=== PATIENT | male | born 1995 | race Caucasian/White ===

== ENCOUNTER 2019-04-24 07:10 | Emergency (ER) | payer BC, SELFPAY ==
--- NOTE | ~2019-04-24 | XR_ITS ---
XR foot RT min 3V DATE: 04/24/2019 07:49 INDICATION: Injury. Pain and bruising at fifth metatarsal. TECHNIQUE: 4 views COMPARISON: None FINDINGS: There is a laterally displaced intra-articular fracture of the lateral base of the fifth me tatarsal bone. No other fracture or dislocation, periosteal reaction or bone destruction. IMPRESSION: Avulsion fracture of the lateral base of the fifth metatarsal bone Reviewed, dictated and finalized at location A.
[2019-04-24 07:24] VITALS: BP 144/73; PULSE 109; RESP 18; TEMP 36.6; O2SAT 99
--- NOTE | 2019-04-24 08:10 | ED.LOWEXIN ---
HPI - Extremity Injury (Lower) General Chief Complaint: Extremity Injury, Lower Stated Complaint: right foot pain Time Seen by Provider: 04/24/19 07:24 Source: patient and RN notes reviewed Mode of arrival: ambulatory Limitations: no limitations History of Present Illness HPI Narrative: Pt is a 24 y/o male presenting to the ED c/o rt foot pain. Pt reports he was taking a tire off his vehicle when he twisted his rt foot and heard a couple cracks last night. Pt states he has a Hx of Osteogenesis Imperfecta with a Hx of frequent bone fractures. Pt denies numbness and states he can ambulate and wiggle his toes. Onset (ago): unknown (Last night) Injury: Right: foot Place: home Other symptoms: none Related Data Home Medications Medication Instructions Recorded Confirmed No Home Medications 04/24/19 04/24/19 Allergies Allergy/AdvReac Type Severity Reaction Status Date / Time No Known Allergies Allergy Verified 04/24/19 07:30 Review of Systems Review of Systems: All systems reviewed & are unremarkable except as noted in HPI and below Musculoskeletal: Musculoskeletal: Reports other (Rt foot pain) Neurologic: Denies numbness PMFSH Past Medical History Medical History Osteogenesis imperfecta Surgical History Surgical History No significant past surgical history Social History Social History Smoking status: Unknown if ever smoked Gender identity (if verbalized by the patient): Male Exam Narrative: Exam Narrative: tend over proximal 5th metatarsal Const: General: healthy appearing and no acute distress Nutritional Appearance: well nourished HENMT: Mouth: Yes lip normal Eyes: Conjunctivae: conjunctivae normal Resp: Effort & Inspection: normal respiratory effort Back/Spine/Pelvis: Other: Full ROM Skin: General skin exam: normal color Other: Warm; Dry Neuro: General: patient oriented x3 Speech: normal speech Extrem: General: full ROM Psych: Mental Status: mental status grossly normal Affect: normal affect Course Vital Signs Vital signs: Vital Signs Temperature 36.6 C 04/24/19 07:24 Pulse Rate 109 H 04/24/19 07:24 Respiratory Rate 18 04/24/19 07:24 Blood Pressure 144/73 H 04/24/19 07:24 Pulse Oximetry 99 04/24/19 07:24 Temperature 36.6 C 04/24/19 07:24 Pulse Rate 109 H 04/24/19 07:24 Respiratory Rate 18 04/24/19 07:24 Blood Pressure 144/73 H 04/24/19 07:24 Pulse Oximetry 99 04/24/19 07:24 MDM - Extremity Injury (Lower) Imaging Data Radiologist's impression: ITS Impressions Foot X-Ray 04/24/19 07:52 IMPRESSION: Avulsion fracture of the lateral base of the fifth metatarsal bone Discharge Plan Discharge Clinical Impression: Closed avulsion fracture of metatarsal bone Patient Disposition: Home, Self-Care Condition: Stable Instructions: Foot Fracture in Adults (ED) Prescriptions: No Action No Home Medications RF: 0 Follow-up/Referrals: PHYSICIAN,ARMATURE CONNECTOR [Primary Care Provider] - Aniket Sanchez MD [Physician] - Stand Alone Forms: Work/School Release IP
[2019-04-24 08:52] VITALS: BP 144/89; PULSE 101; RESP 19; O2SAT 100
== END 2019-04-24 08:54 | disposition home or self-care (01) ==
PROVIDERS: Emergency Provider Emergency Medicine
DX: S92.352A Displaced fracture of fifth metatarsal bone, left foot, initial encounter for closed fracture (principal); X50.9XXA Other and unspecified overexertion or strenuous movements or postures, initial encounter
CPT/HCPCS: 73630; 99284